=== PATIENT | female | born 1980 | race African-American/Black ===

== ENCOUNTER 2021-09-26 11:23 | Emergency (ER) | payer SELFPAY ==
[~2021-09-26] VITALS: Ht 170.2 cm; Wt 65.0 kg
[2021-09-26 11:37] VITALS: BP 122/89
[2021-09-26] MEDS ORDERED: KETOROLAC 60MG/2ML VIAL IM ONE (11:45)
[2021-09-26] MEDS ORDERED: NAPR500T7 MT (13:00)
== END 2021-09-26 15:21 | disposition home or self-care (01) ==
LOC: ER 11:23
DX: S09.8XXA Other specified injuries of head, initial encounter (principal); T14.8XXA Other injury of unspecified body region, initial encounter; V43.52XA Car driver injured in collision with other type car in traffic accident, initial encounter; Y93.89 Activity, other specified; Y92.488 Other paved roadways as the place of occurrence of the external cause
CPT/HCPCS: 71045; 73030; 73130; 73562; 96372; 99284; J1885